=== PATIENT | female | born 2000 | race Caucasian/White ===

== ENCOUNTER 2022-01-02 05:53 | Inpatient (IN) | payer OTHER ==
[2022-01-02] MEDS ORDERED: Bupivacaine 0.25% HCL 30 ML VIAL ONE (06:00)
[2022-01-02 06:07] VITALS: BMI 35.4
[2022-01-02] MEDS ORDERED: Ondansetron PF 4 MG/2 ML Vial IVP PRN ×3 (06:20→12:22)
[2022-01-02] MEDS ORDERED: Ibuprofen 800 MG TAB PO PRN (06:20)
[2022-01-02] MEDS ORDERED: HYDROcodone/Acetaminophen 5/325 mg Tablet PO PRN (06:20)
[2022-01-02] MEDS ORDERED: hydrALAZINE 20 MG/ML VIAL SLOW IVP PRN ×2 (06:20→12:22)
[2022-01-02] MEDS ORDERED: Promethazine HCl 25 MG/ML VIAL IM PRN ×2 (06:20→08:19)
[2022-01-02] MEDS ORDERED: Lidocaine 1% (PF) 30 ML VIAL SC PRN (06:20)
[2022-01-02] MEDS ORDERED: Butorphanol Tartrate 1 MG/ML VIAL SLOW IVP PRN (06:20)
[2022-01-02] MEDS ORDERED: Lactated Ringer's 1,000 ML IV SCH ×2 (06:30)
[2022-01-02] MEDS ORDERED: NS w/ Oxytocin 30 units 500 ML IV SCH (06:30)
[2022-01-02 06:49] LABS: Hemoglobin 11.8 g/dL (12.0-15.5); Mean Corpuscular HGB CONC 32.6 g/dL (32.0-36.0); Mean Corpuscular Hemoglobin 26.5 pg (27.0-33.0); Mean Corpuscular Volume 81.3 fl (81.6-98.3); Mean Platelet Volume 10.4 fl (7.4-10.4); Platelet Count 297 10x3/uL (150-450); Red Blood Cell (RBC) Count 4.45 10x6/uL (3.90-5.03)
[2022-01-02 07:16] LABS: Syphilis Antibody Nonreactive (Nonreactive); Syphilis Antibody Index 0.06 S/CO (<1.00 Non-Reactive)
[2022-01-02 07:18] LABS: Hep B Surf Ag Non-Reactive S/CO (NonReactive)
[2022-01-02] MEDS ORDERED: Fentanyl 2 mcg/Bup 0.1% Cadd 100 ML ONE (07:50)
[2022-01-02] MEDS ORDERED: Naloxone HCl 0.4 mg/ml Vial IVP PRN ×2 (08:19)
[2022-01-02] MEDS ORDERED: ePHEDrine Sulfate 50 MG/10 ML VIAL SLOW IVP PRN (08:19)
[2022-01-02] MEDS ORDERED: Acetaminophen 325 MG TAB PO PRN (08:19)
[2022-01-02] MEDS ORDERED: diphenhydrAMINE 50 MG/ML VIAL IVP PRN (08:19)
[2022-01-02] MEDS ORDERED: Lactated Ringer's 500 ML IV PRN (08:19)
[2022-01-02] MEDS ORDERED: Moisturizing Cream (Eucerin) 113 GM JAR TOP PRN (08:19)
[2022-01-02 08:30] LABS: SARS-CoV-2 NAA Rapid Test Not Detected (NotDetected)
[2022-01-02] MEDS ORDERED: Communication Order-Pharmacy FS SCH (08:30)
[2022-01-02] MEDS ORDERED: Fentanyl 2 mcg/Bupivacaine 0.1% Cassette 100 ML EPIDURAL SCH (08:30)
[2022-01-02] MEDS ORDERED: Boostrix 0.5 ML (Tdap) VIAL IM ONE (12:22)
[2022-01-02] MEDS ORDERED: Milk Of Magnesia 30 ML UDCUP PO PRN (12:22)
[2022-01-02] MEDS ORDERED: Bisacodyl 10 MG SUPP PR PRN (12:22)
[2022-01-02] MEDS ORDERED: Benzocaine-Menthol 82.5 ML CAN TOP PRN (12:22)
[2022-01-02] MEDS ORDERED: Methylergonovine 0.2 MG/ML VIAL IM PRN (12:22)
[2022-01-02 16:01] LABS: Amphetamine Not Detected (NotDetected); Barbiturates Screen Not Detected (NotDetected); Benzodiazepine Screen Not Detected (NotDetected); Cocaine Metabolite Screen Not Detected (NotDetected); Methadone Not Detected (NotDetected); Methamphetamine Not Detected (NotDetected); Opiate Screen Not Detected (NotDetected); Oxycodone Screen Not Detected (NotDetected); Phencyclidine (PCP) Not Detected (NotDetected); THC/Cannabinoid Screen Detected (NotDetected); Tricyclic Screen Not Detected (NotDetected)
[2022-01-02] MEDS: Ibuprofen 800 MG TAB PO SCH ×2 (16:38→23:31)
[2022-01-02] MEDS: Ferrous Sulfate 325 MG TAB PO SCH (17:43)
[2022-01-02] MEDS: Docusate 100 MG CAP PO SCH (21:04)
[2022-01-03] MEDS: Ibuprofen 800 MG TAB PO SCH ×3 (00:15→17:36)
[2022-01-03 05:35] LABS: #Eosinphils 0.3 10x3/uL (0.0-0.5); #Monocytes 0.6 10x3/uL (0.0-1.1); #Neutrophils 8.6 10x3/uL (1.5-8.4); %Basophils 0.3 % (0.0-2.0); %Eosinophils 2.2 % (0.0-6.0); %Lymphocytes 17.2 % (18.0-47.0); %Monocytes 5.5 % (0.0-10.0); %Neutrophils 73.9 % (40.0-75.0); Mean Corpuscular HGB CONC 32.2 g/dL (32.0-36.0); Mean Corpuscular Hemoglobin 26.2 pg (27.0-33.0); Mean Corpuscular Volume 81.6 fl (81.6-98.3); Mean Platelet Volume 10.3 fl (7.4-10.4); Platelet Count 247 10x3/uL (150-450); RBC Distribution Width 15.4 % (11.5-14.5); Red Blood Cell (RBC) Count 3.81 10x6/uL (3.90-5.03); White Blood Cell (WBC) Count 11.6 10x3/uL (3.5-10.5)
[2022-01-03 05:39] LABS: ALT (SGPT) 11 U/L (8-55); AST (SGOT) 21 U/L (5-34); Albumin 3.1 g/dL (3.5-5.0); Alkaline Phosphatase 147 U/L (40-110); Anion Gap 12 mmol/L (10-20); BUN (Urea Nitrogen) 6 mg/dL (7.0-18.7); Bilirubin, Total 0.4 mg/dL (0.2-1.2); Calc. Creatinine Clearance 182 mL/min (70-130); Calcium 8.5 mg/dL (7.8-10.44); Carbon Dioxide 22 mmol/L (22-29); Chloride 107 mmol/L (98-107); Globulin 3.1 g/dL (2.4-3.5); Glucose 73 mg/dL (70-105); Potassium 4.1 mmol/L (3.5-5.1); Protein, Total 6.2 g/dL (6.0-8.3); Sodium 137 mmol/L (136-145)
[2022-01-03] MEDS: Ferrous Sulfate 325 MG TAB PO SCH ×2 (09:18→17:38)
[2022-01-03] MEDS: Docusate 100 MG CAP PO SCH (09:18)
[2022-01-04] MEDS: Ibuprofen 800 MG TAB PO SCH ×3 (01:01→17:13)
[2022-01-04] MEDS: Docusate 100 MG CAP PO SCH ×2 (01:02→08:38)
[2022-01-04] MEDS: Ferrous Sulfate 325 MG TAB PO SCH ×2 (08:37→17:14)
[2022-01-04 08:41] VITALS: BP 139/86; TEMP 98.4
[2022-01-05 10:02] LABS: HIV (1/2) Antibody/Antigen Non-Reactive (NonReactive); HIV 1/2 INDEX 0.11 S/CO (<1.00)
== END 2022-01-04 18:10 | disposition home or self-care (01) | DRG 806 ==
LOC: CSHLD/OP 05:53 → CSHLD 08:12 → CSHPP 15:31
PROVIDERS: ADMIT Obstetrics & Gynecology; ATTEND Obstetrics & Gynecology
PROC: 10E0XZZ Delivery of Products of Conception, External Approach (ICD-10-PCS; principal; 2022-01-02)
PROC: 10H07YZ Insertion of Other Device into Products of Conception, Via Natural or Artificial Opening (ICD-10-PCS; 2022-01-02)
DX: O42.02 Full-term premature rupture of membranes, onset of labor within 24 hours of rupture (principal); O99.324 Drug use complicating childbirth; Z37.0 Single live birth; O77.0 Labor and delivery complicated by meconium in amniotic fluid; Z3A.39 39 weeks gestation of pregnancy; O76 Abnormality in fetal heart rate and rhythm complicating labor and delivery; O69.89X0 Labor and delivery complicated by other cord complications, not applicable or unspecified; F12.90 Cannabis use, unspecified, uncomplicated
CPT/HCPCS: 51702; 80053; 80306; 85025; 85027; 86780; 86850; 86900; 86901; 87340; 87389; 99285; S0020; U0002

== ENCOUNTER 2022-01-05 20:06 | Emergency (ER) | payer OTHER | END 2022-01-05 20:35 | disposition home or self-care (01) | LOC: CSHERS 20:06 | DX: I80.9 Phlebitis and thrombophlebitis of unspecified site (principal) | CPT/HCPCS: 99283 ==

== ENCOUNTER 2024-10-17 23:37 | Day surgery (SDC) | payer OTHER, SELFPAY ==
[2024-10-18] MEDS ORDERED: hydrALAZINE 20 MG/ML VIAL SLOW IVP PRN (00:29)
[2024-10-18 00:38] VITALS: BMI 34.9
[2024-10-18 00:59] LABS: Bilirubin Neg (Negative); Blood, Urine Negative (Negative); Clarity Clear (Clear); Glucose, Urine (Dipstick) Normal (Negative); Ketone, Urine Negative (Negative); Leukocyte 100 (Negative); Nitrite Negative (Negative); Protein, Urine (Dipstick) Negative (Neg-Trace); Specific Gravity, Urine 1.015 (1.005-1.030); Urobilinogen Normal mg/dL (Less than 2); pH, Urine 6.5 (5.0-9.0)
[2024-10-18 01:19] LABS: Bacteria/HPF 1+ HPF (None Seen); CAUTI Indications for Culture Pregnancy; RBC/HPF None Seen HPF (0-3); Squamous Epithelial 0-3 HPF (0-3); Trichomonas/HPF Rare HPF (None Seen)
[2024-10-18 01:21] LABS: Urine Culture Reflex Yes Yes
[2024-10-18] MEDS: Cyclobenzaprine 10 MG TAB PO SCH (02:25)
[2024-10-18] MEDS: metroNIDAZOLE 500 MG TAB PO SCH (02:26)
== END 2024-10-18 02:40 | disposition home or self-care (01) ==
LOC: CSHLD/OP 23:37
PROVIDERS: ATTEND Obstetrics & Gynecology
DX: O99.891 Other specified diseases and conditions complicating pregnancy (principal); R10.2 Pelvic and perineal pain; M54.50 Low back pain, unspecified; O23.593 Infection of other part of genital tract in pregnancy, third trimester; N89.8 Other specified noninflammatory disorders of vagina; A59.9 Trichomoniasis, unspecified; B96.89 Other specified bacterial agents as the cause of diseases classified elsewhere; O36.8130 Decreased fetal movements, third trimester, not applicable or unspecified; Z3A.30 30 weeks gestation of pregnancy; Z88.1 Allergy status to other antibiotic agents; Z79.899 Other long term (current) drug therapy
CPT/HCPCS: 81001; 87086; 87480; 87510; 87660; 99285